=== PATIENT | male | born 1945 | race African-American/Black ===

== ENCOUNTER → 2024-02-07 13:16 | Outpatient (REF) | payer MEDICARE, OTHER, SELFPAY | LOC: RCS 13:16 | PROVIDERS: ATTENDING PHYSICIAN Internal Medicine Cardiovascular Disease; FAMILY PHYSICIAN Family Medicine | DX: I50.20 Unspecified systolic (congestive) heart failure (principal); I51.7 Cardiomegaly | CPT/HCPCS: 93306 ==

== ENCOUNTER → 2024-05-07 13:11 | Outpatient (REF) | payer MEDICARE, OTHER, SELFPAY | LOC: DHSLP 13:11 | PROVIDERS: ATTENDING PHYSICIAN Internal Medicine Critical Care Medicine; FAMILY PHYSICIAN Family Medicine | DX: G47.33 Obstructive sleep apnea (adult) (pediatric) (principal); G47.31 Primary central sleep apnea | CPT/HCPCS: 95811 ==